=== PATIENT | male | born 1970 | race Caucasian/White ===

== ENCOUNTER 2021-01-25 08:20 | Emergency (ER) | payer MEDICARE ==
[~2021-01-25 08:20] MED LIST: TAMIFLU 75MG CA75 MG PO
[2021-01-25] MEDS ORDERED: IBUPROFEN800 MG PO (08:59)
== END 2021-01-25 09:25 | disposition home or self-care (01) ==
LOC: FER 08:20
DX: S63.501A Unspecified sprain of right wrist, initial encounter (principal); F17.290 Nicotine dependence, other tobacco product, uncomplicated; X58.XXXA Exposure to other specified factors, initial encounter
CPT/HCPCS: 99283

== ENCOUNTER → 2022-03-08 | Day surgery (SDC) | payer OTHER ==
[~2022-03-08] MED LIST changes: +ACETAMINOPHEN500 M1 PO; +COLACE100 MG PO; +IBUPROFEN800 MG PO; +OXY-IR 5MG5 MG PO
[2022-03-08 09:35] LABS: BASOPHIL 0.2 % (0-2); EOSINOPHIL 2.4 % (0-5); HCT 42.4 % (42.0-52.0); HGB 14.4 g/dl (13.2-18.0); LYMPHOCYTE 10.2 % (15-48); MCH 32.4 pg (25.0-31.0); MCV 95.5 fL (78.0-100.0); MONOCYTE 8.3 % (0-12); MPV 9.8 fL (6.0-9.5); NEUTROPHIL 78.4 % (41-80); NRBC 0; PLT 202 K/uL (150-400); RBC 4.44 M/uL (4.70-6.00); RDW 12.7 % (11.5-14.0); WBC 12.6 K/uL (4.0-10.5)
[2022-03-08 10:05] LABS: ALBUMIN 3.7 g/dL (3.4-5.0); BILIRUBIN - TOTAL 0.9 mg/dL (0.2-1.0); GLOBULIN (CALCULATION) 2.9 g/dL; POTASSIUM 3.7 mmol/L (3.5-5.1); TOTAL PROTEIN 6.6 g/dL (6.4-8.2)
[2022-03-08 10:30] LABS: BILIRUBIN NEGATIVE (NEGATIVE); BLOOD NEGATIVE Ery/uL (NEGATIVE); CLARITY CLEAR (CLEAR); COLOR YELLOW (YELLOW); GLUCOSE (U) NORMAL (NORMAL); LEUKOCYTES NEGATIVE Leu/uL (NEGATIVE); NITRITE NEGATIVE (NEGATIVE); PROTEIN NEGATIVE (NEGATIVE); SPECIFIC GRAVITY 1.025 (1.001-1.030); UROBILINOGEN 0.2 mg/dL (0.2-1.0)
[2022-03-08 10:32] LABS: CREATININE 1.14 mg/dL (0.67-1.17)
== END | disposition home or self-care (01) ==
LOC: FER 07:29 → FAS 11:42
PROVIDERS: Emergency Medicine
DX: K35.80 Unspecified acute appendicitis (principal); I10 Essential (primary) hypertension; K21.9 Gastro-esophageal reflux disease without esophagitis; Z20.822 Contact with and (suspected) exposure to COVID-19
CPT/HCPCS: 36415; 80053; 81003; 83690; 84145; 85025; J1100; J1170; J1644; J1885; J2250; J2405; J2543; J2704; J3010; J7030; Q9967; U0002

== ENCOUNTER 2022-04-06 08:59 | Emergency (ER) | payer OTHER ==
[2022-04-06 10:33] LABS: FLU B NEGATIVE B (NEGATIVE B)
== END 2022-04-06 11:25 | disposition home or self-care (01) ==
LOC: FER 08:59
PROVIDERS: Emergency Medicine
DX: U07.1 COVID-19 (principal); J40 Bronchitis, not specified as acute or chronic; I10 Essential (primary) hypertension; Z87.891 Personal history of nicotine dependence
CPT/HCPCS: 71045; 87804; 87880; 87899; U0002